=== PATIENT | female | born 1995 | race Caucasian/White ===

== ENCOUNTER 2019-06-13 13:32 | Inpatient (IN) ==
[2019-06-13] MEDS ORDERED: 0.9 % Sodium Chloride 1,000 ML IVC ONE ×2 (14:31→17:24)
[2019-06-13 15:13] LABS: Basophils % 0.6 %; Red Cell Distribution Width 11.9 % (11.5-14.5)
[2019-06-13 15:16] LABS: Hematocrit 35.7 % (35.3-44.9); Hemoglobin 13.2 g/dL (11.5-15.4); Immature Granulocytes % 0.6 % (0-4); Lymphocytes # 0.8 K/mcL (0.6-4.6); Lymphocytes % 43.6 %; Mean Corpuscular Volume 94.7 fL (83.0-100.0); Mean Platelet Volume 10.1 fL (9.4-12.4); Monocytes # 0.7 K/mcL (0.0-1.3); Monocytes % 37.4 %; Neutrophils # 0.3 K/mcL (1.6-8.9); Platelet Count 190 K/mcL (140-400); Red Blood Count 3.77 M/mcL (3.82-4.97); Segmented Neutrophils % 17.8 %; White Blood Count 1.8 K/mcL (4.3-11.1)
[2019-06-13 15:32] LABS: Reactive Lymphocytes Present (Not Present)
[2019-06-13 15:33] LABS: Platelet Estimate Normal (Normal)
[2019-06-13 15:35] LABS: Alanine Aminotransferase 68 Units/L (7-52); Albumin 4.3 g/dL (3.5-5.7); Albumin/Globulin Ratio 1.3 (1.1-2.2); Alkaline Phosphatase 78 Units/L (34-104); Aspartate Amino Transferase 59 Units/L (13-39); BUN/Creatinine Ratio 7 (6-26); Bilirubin,Total 1.2 mg/dL (0.3-1.0); Blood Urea Nitrogen 8 mg/dL (6-20); Calcium 8.9 mg/dL (8.6-10.3); Carbon Dioxide 22 mEq/L (23-29); Chloride 100 mEq/L (98-107); Globulin 3.3 g/dL (2.4-3.5); Glucose 105 mg/dL (70-105); Osmolality,Calculated 277 (280-300); Potassium 3.2 mEq/L (3.5-5.1); Sodium 134 mEq/L (136-145); Total Protein 7.6 g/dL (6.4-8.9); eGFR For African Americans > 60 (> 60); eGFR For Non-African Americans > 60 (> 60)
[2019-06-13 15:52] LABS: Bilirubin,Urine Small (Negative); Blood,Urine Negative (Negative); Clarity,Urine Cloudy (Clear); Color,Urine Dark Yellow (Yellow); Glucose,Urine (UA) Normal (Normal); Ketones,Urine 40 mg/dL (Negative); Leukocyte Esterase,Urine Moderate (Negative); Nitrite,Urine Negative (Negative); PH,Urine 6.5 pH Units (5.0-8.0); Protein,Urine 30 mg/dL (Neg-Trace); Specific Gravity,Urine 1.015 (1.010-1.025)
[2019-06-13 16:01] LABS: Bacteria,Urine Moderate per hpf (None-Few); Hyaline Casts,Urine None Seen per lpf (None-Few); RBC,Urine 0-3 per hpf (0-3); Squamous Epithelial Cell,Urine Many per lpf (None-Few); WBC,Urine 30-50 per hpf (0-3)
[2019-06-13] MEDS ORDERED: Cefepime HCl 2,000 MG in Water for inj. (sterile) 20 ML IVP ONE (16:55)
[2019-06-13] MEDS ORDERED: Acyclovir 700 MG in D5% in Water 100 ML IVPB ONE (16:56)
[2019-06-13] MEDS ORDERED: MetroNIDAZOLE 500 MG/100 ML 500 MG/100 ML BAG IVPB ONE (16:56)
[2019-06-13] MEDS ORDERED: Doxycycline 100 MG in 0.9 % Sodium Chloride Mini Bag 100 ML IVPB ONE (16:57)
[2019-06-13] MEDS ORDERED: Isovue-370 500 ML BOTTLE IVP ONE (17:24)
[2019-06-13 18:00] LABS: Candida DNA Not Detected (Not Detect); Gardnerella DNA DETECTED (Not Detect); Trichomonas DNA Not Detected (Not Detect)
[2019-06-13] MEDS ORDERED: Naloxone 0.4 MG/ML INJ IVP PRN (18:07)
[2019-06-13] MEDS: 0.9 % Sodium Chloride 1,000 ML IVC SCH (21:11)
[2019-06-14] MEDS: Cefepime HCl 2,000 MG in 0.9 % Sodium Chloride Mini Bag 100 ML IVPB SCH ×3 (02:28→17:37)
[2019-06-14 02:37] LABS: Adenovirus Not Detected (Not Detect); Bordetella Pertussis Not Detected (Not Detect); Chlamydophila pneumoniae Not Detected (Not Detect); Coronavirus 229E Not Detected (Not Detect); Coronavirus HKU1 Not Detected (Not Detect); Coronavirus NL63 Not Detected (Not Detect); Coronavirus OC43 Not Detected (Not Detect); Human Metapneumovirus Not Detected (Not Detect); Human Rhinovirus/Enterovirus Not Detected (Not Detect); Influenza A Subtype 2009 H1 Not Detected (Not Detect); Influenza B Not Detected (Not Detect); Mycoplasma pneumoniae Not Detected (Not Detect); Parainfluenza Virus 1 Not Detected (Not Detect); Parainfluenza Virus 2 Not Detected (Not Detect); Parainfluenza Virus 3 Not Detected (Not Detect); Parainfluenza Virus 4 Not Detected (Not Detect); Respiratory Syncytial Virus Not Detected (Not Detect)
[2019-06-14 03:01] LABS: BUN/Creatinine Ratio 8 (6-26); Blood Urea Nitrogen 7 mg/dL (6-20); Calcium 7.7 mg/dL (8.6-10.3); Carbon Dioxide 24 mEq/L (23-29); Chloride 110 mEq/L (98-107); Glucose 119 mg/dL (70-105); Osmolality,Calculated 287 (280-300); Potassium 3.4 mEq/L (3.5-5.1); Sodium 139 mEq/L (136-145); eGFR For African Americans > 60 (> 60); eGFR For Non-African Americans > 60 (> 60)
[2019-06-14] MEDS: Acyclovir 500 MG in D5% in Water 100 ML IVPB SCH ×3 (03:11→16:10)
[2019-06-14 04:11] LABS: Basophils % 0.8 %; Hematocrit 29.4 % (35.3-44.9); Hemoglobin 10.4 g/dL (11.5-15.4); Immature Granulocytes % 0.8 % (0-4); Lymphocytes # 0.8 K/mcL (0.6-4.6); Lymphocytes % 60.9 %; Mean Corpuscular HGB Conc 35.4 g/dL (31.6-35.5); Mean Corpuscular Hemoglobin 34.7 pg (28.0-33.3); Mean Platelet Volume 10.8 fL (9.4-12.4); Monocytes # 0.4 K/mcL (0.0-1.3); Monocytes % 30.8 %; Neutrophils # 0.1 K/mcL (1.6-8.9); Platelet Count 170 K/mcL (140-400); Red Cell Distribution Width 12.4 % (11.5-14.5); Segmented Neutrophils % 6.7 %; White Blood Count 1.3 K/mcL (4.3-11.1)
[2019-06-14 04:13] LABS: Chlamydia Trachomatis DNA Ur NOT DETECTED (Not Detect)
[2019-06-14] MEDS: 0.9 % Sodium Chloride 1,000 ML IVC SCH ×2 (04:17→22:35)
[2019-06-14 04:53] LABS: Platelet Estimate Decreased (Normal)
[2019-06-14] MEDS: *HR* Heparin 5,000 UNIT/ML VIAL SQ SCH ×2 (05:06→18:51)
[2019-06-14] MEDS: Doxycycline 100 MG in 0.9 % Sodium Chloride Mini Bag 100 ML IVPB SCH ×2 (05:06→18:51)
[2019-06-14 07:49] LABS: Thyroid Stimulating Hormone 45.406 mcIU/mL (0.340-5.600)
[2019-06-14] MEDS: Potassium Chloride Elixir 20 MEQ/15 ML UDC PO SCH ×2 (08:26→22:33)
[2019-06-14 10:45] LABS: Mean Platelet Volume 10.3 fL (9.4-12.4)
[2019-06-14 10:51] LABS: INR 1.3; Prothrombin Time 14.8 Seconds (9.4-12.1)
[2019-06-14 10:54] LABS: Activated Partial Thrombo Time 32.7 Seconds (26.0-36.0)
[2019-06-14 11:00] LABS: Hematocrit 31.7 % (35.3-44.9); Hemoglobin 11.5 g/dL (11.5-15.4); Mean Corpuscular HGB Conc 36.3 g/dL (31.6-35.5); Mean Corpuscular Hemoglobin 35.3 pg (28.0-33.3); Mean Corpuscular Volume 97.2 fL (83.0-100.0); Neutrophils # 0.1 K/mcL (1.6-8.9); Platelet Count 184 K/mcL (140-400); Red Blood Count 3.26 M/mcL (3.82-4.97); Red Cell Distribution Width 12.4 % (11.5-14.5); White Blood Count 1.4 K/mcL (4.3-11.1)
[2019-06-14 11:31] LABS: Monocytes # 0.3 K/mcL (0.0-1.3)
[2019-06-14 11:32] LABS: Platelet Estimate Normal (Normal); Reactive Lymphocytes Present (Not Present)
[2019-06-14] MEDS ORDERED: Isovue-370 500 ML BOTTLE IVP ONE (12:26)
[2019-06-14 14:25] LABS: Albumin 3.6 g/dL (3.5-5.7); Albumin/Globulin Ratio 1.2 (1.1-2.2); Bilirubin,Direct 0.3 mg/dL (0.0-0.2); Bilirubin,Indirect 0.6 mg/dL (0.0-1.0); Bilirubin,Total 0.9 mg/dL (0.3-1.0); Globulin 3.1 g/dL (2.4-3.5); Total Protein 6.7 g/dL (6.4-8.9)
[2019-06-14 14:42] LABS: Folate 16.6 ng/mL (3.0-16.0)
[2019-06-14] MEDS: metroNIDAZOLE 500 MG TABLET PO SCH (22:26)
[2019-06-15] MEDS: Acyclovir 500 MG in D5% in Water 100 ML IVPB SCH ×3 (01:24→17:52)
[2019-06-15 02:37] LABS: Basophils % 0.5 %; Mean Platelet Volume 10.5 fL (9.4-12.4)
[2019-06-15 02:39] LABS: Hematocrit 33.3 % (35.3-44.9); Hemoglobin 11.7 g/dL (11.5-15.4); Lymphocytes # 1.3 K/mcL (0.6-4.6); Lymphocytes % 66.3 %; Mean Corpuscular HGB Conc 35.1 g/dL (31.6-35.5); Mean Corpuscular Hemoglobin 35.2 pg (28.0-33.3); Mean Corpuscular Volume 100.3 fL (83.0-100.0); Monocytes # 0.5 K/mcL (0.0-1.3); Monocytes % 26.4 %; Neutrophils # 0.1 K/mcL (1.6-8.9); Platelet Count 193 K/mcL (140-400); Red Blood Count 3.32 M/mcL (3.82-4.97); Red Cell Distribution Width 12.4 % (11.5-14.5); Segmented Neutrophils % 5.8 %; White Blood Count 1.9 K/mcL (4.3-11.1)
[2019-06-15] MEDS: Cefepime HCl 2,000 MG in 0.9 % Sodium Chloride Mini Bag 100 ML IVPB SCH ×3 (02:50→20:10)
[2019-06-15 02:58] LABS: Alanine Aminotransferase 54 Units/L (7-52); Albumin 3.8 g/dL (3.5-5.7); Albumin/Globulin Ratio 1.2 (1.1-2.2); Alkaline Phosphatase 72 Units/L (34-104); Aspartate Amino Transferase 47 Units/L (13-39); BUN/Creatinine Ratio 8 (6-26); Bilirubin,Total 0.7 mg/dL (0.3-1.0); Blood Urea Nitrogen 7 mg/dL (6-20); Carbon Dioxide 24 mEq/L (23-29); Chloride 104 mEq/L (98-107); Globulin 3.1 g/dL (2.4-3.5); Glucose 139 mg/dL (70-105); Osmolality,Calculated 282 (280-300); Potassium 4.5 mEq/L (3.5-5.1); Sodium 136 mEq/L (136-145); Total Protein 6.9 g/dL (6.4-8.9); eGFR For African Americans > 60 (> 60); eGFR For Non-African Americans > 60 (> 60)
[2019-06-15 03:37] LABS: Platelet Estimate Normal (Normal); Reactive Lymphocytes Present (Not Present)
[2019-06-15] MEDS: Doxycycline 100 MG in 0.9 % Sodium Chloride Mini Bag 100 ML IVPB SCH ×2 (05:47→17:53)
[2019-06-15] MEDS: *HR* Heparin 5,000 UNIT/ML VIAL SQ SCH ×2 (05:48→18:07)
[2019-06-15] MEDS: metroNIDAZOLE 500 MG TABLET PO SCH ×2 (08:39→21:18)
[2019-06-15] MEDS: 0.9 % Sodium Chloride 1,000 ML IVC SCH ×3 (11:55→13:35)
[2019-06-15 13:18] LABS: HSV 1 DNA Not Detected (Not Detect); HSV 2 DNA Not Detected (Not Detect)
[2019-06-16] MEDS: Cefepime HCl 2,000 MG in 0.9 % Sodium Chloride Mini Bag 100 ML IVPB SCH ×3 (01:43→18:24)
[2019-06-16] MEDS: Acyclovir 500 MG in D5% in Water 100 ML IVPB SCH ×2 (01:46→09:00)
[2019-06-16 04:04] LABS: Basophils % 0.4 %; Hemoglobin 12.6 g/dL (11.5-15.4); Immature Granulocytes % 1.8 % (0-4); Lymphocytes # 1.5 K/mcL (0.6-4.6); Lymphocytes % 65.3 %; Mean Corpuscular Hemoglobin 35.1 pg (28.0-33.3); Mean Corpuscular Volume 100.3 fL (83.0-100.0); Mean Platelet Volume 10.5 fL (9.4-12.4); Monocytes # 0.6 K/mcL (0.0-1.3); Monocytes % 24.9 %; Neutrophils # 0.2 K/mcL (1.6-8.9); Platelet Count 218 K/mcL (140-400); Red Blood Count 3.59 M/mcL (3.82-4.97); Red Cell Distribution Width 12.1 % (11.5-14.5); Segmented Neutrophils % 7.6 %; White Blood Count 2.3 K/mcL (4.3-11.1)
[2019-06-16 04:21] LABS: Platelet Estimate Normal (Normal); Reactive Lymphocytes Present (Not Present)
[2019-06-16 04:23] LABS: BUN/Creatinine Ratio 10 (6-26); Blood Urea Nitrogen 10 mg/dL (6-20); Calcium 9.5 mg/dL (8.6-10.3); Carbon Dioxide 23 mEq/L (23-29); Chloride 101 mEq/L (98-107); Glucose 126 mg/dL (70-105); Osmolality,Calculated 275 (280-300); Potassium 3.7 mEq/L (3.5-5.1); Sodium 132 mEq/L (136-145); eGFR For African Americans > 60 (> 60); eGFR For Non-African Americans > 60 (> 60)
[2019-06-16] MEDS: Doxycycline 100 MG in 0.9 % Sodium Chloride Mini Bag 100 ML IVPB SCH (06:14)
[2019-06-16] MEDS: *HR* Heparin 5,000 UNIT/ML VIAL SQ SCH ×2 (06:14→18:25)
[2019-06-16] MEDS: metroNIDAZOLE 500 MG TABLET PO SCH ×2 (08:57→20:15)
[2019-06-16 14:01] LABS: Procalcitonin 0.46 ng/mL (0.00-0.15)
[2019-06-16] MEDS ORDERED: Lidocaine/EPI 1:100k 1% 20 ML VIAL INFILT ONE (15:33)
[2019-06-16] MEDS ORDERED: Benzocaine/Menthol 56 GM AEROSOL SPRAY TP PRN (16:15)
[2019-06-16 19:35] LABS: Hepatitis B Surface Antigen Nonreactive (Nonreactive)
[2019-06-16 20:05] LABS: Hepatitis C Virus Antibody Nonreactive (Nonreactive)
[2019-06-16 20:06] LABS: Hepatitis B Core IgM Nonreactive (Nonreactive)
[2019-06-16 20:07] LABS: Hepatitis A Antibody IgM Nonreactive (Nonreactive)
[2019-06-17] MEDS: Cefepime HCl 2,000 MG in 0.9 % Sodium Chloride Mini Bag 100 ML IVPB SCH ×2 (01:50→10:08)
[2019-06-17 05:20] LABS: Hematocrit 37.6 % (35.3-44.9); Hemoglobin 13.1 g/dL (11.5-15.4); Mean Corpuscular HGB Conc 34.8 g/dL (31.6-35.5); Mean Corpuscular Hemoglobin 34.9 pg (28.0-33.3); Mean Corpuscular Volume 100.3 fL (83.0-100.0); Mean Platelet Volume 10.2 fL (9.4-12.4); Platelet Count 244 K/mcL (140-400); Red Blood Count 3.75 M/mcL (3.82-4.97); White Blood Count 2.7 K/mcL (4.3-11.1)
[2019-06-17 05:35] LABS: BUN/Creatinine Ratio 13 (6-26); Blood Urea Nitrogen 14 mg/dL (6-20); Calcium 9.3 mg/dL (8.6-10.3); Carbon Dioxide 25 mEq/L (23-29); Chloride 97 mEq/L (98-107); Glucose 119 mg/dL (70-105); Osmolality,Calculated 278 (280-300); Potassium 3.7 mEq/L (3.5-5.1); Sodium 133 mEq/L (136-145); eGFR For African Americans > 60 (> 60); eGFR For Non-African Americans > 60 (> 60)
[2019-06-17] MEDS: *HR* Heparin 5,000 UNIT/ML VIAL SQ SCH (05:48)
[2019-06-17 06:48] LABS: Lymphocytes # 1.6 K/mcL (0.6-4.6); Monocytes # 0.4 K/mcL (0.0-1.3); Neutrophils # 0.7 K/mcL (1.6-8.9); Platelet Estimate Normal (Normal)
[2019-06-17 08:08] VITALS: BP 103/72
[2019-06-17 09:58] LABS: HIV-1 Viral Load Interp NOT DETECTED (Not Detected)
[2019-06-17] MEDS: metroNIDAZOLE 500 MG TABLET PO SCH (10:08)
[2019-06-17 10:23] LABS: HSV 1 Glycoprotein G IgG 0.19 IV (<=0.90); HSV 2 Glycoprotein G IgG 0.19 IV (<=0.90)
[2019-06-18 11:05] LABS: ANA IgG by ELISA DETECTED (None Detected)
[2019-06-18 19:06] LABS: ANA HEp-2 IgG IFA DETECTED (<1:80); Anti Nuclear Ab Pattern SPECKLED
== END 2019-06-17 18:33 | disposition home or self-care (01) | DRG 531 ==
LOC: EMEROOARM 13:32 → 3BNU 13:32 → SUATTDRO 19:42 → 3BNU 20:31
PROVIDERS: ADMIT Student in an Organized Health Care Education/Training Program; ATTEND Internal Medicine

== ENCOUNTER 2020-02-17 17:35 | Observation (INO) ==
[2020-02-17] MEDS ORDERED: 0.9 % Sodium Chloride 1,000 ML IVC ONE ×2 (17:53→18:42)
[2020-02-17] MEDS ORDERED: Isovue-370 500 ML BOTTLE IVP ONE (18:04)
[2020-02-17] MEDS ORDERED: Dexamethasone 4 MG/ML VIAL IVP ONE (18:04)
[2020-02-17] MEDS ORDERED: cefTRIAXone 2,000 MG in Water for inj. (sterile) 20 ML IVP ONE (18:06)
[2020-02-17 18:32] LABS: Basophils % 1.9 %; Red Cell Distribution Width 12.1 % (11.5-14.5)
[2020-02-17 18:33] LABS: Hematocrit 34.3 % (35.3-44.9); Hemoglobin 11.8 g/dL (11.5-15.4); Immature Granulocytes % 0.9 % (0-4); Lymphocytes # 0.3 K/mcL (0.6-4.6); Lymphocytes % 31.1 %; Mean Corpuscular HGB Conc 34.4 g/dL (31.6-35.5); Mean Corpuscular Hemoglobin 34.6 pg (28.0-33.3); Mean Corpuscular Volume 100.6 fL (83.0-100.0); Monocytes # 0.4 K/mcL (0.0-1.3); Monocytes % 38.7 %; Neutrophils # 0.3 K/mcL (1.6-8.9); Platelet Count 186 K/mcL (140-400); Red Blood Count 3.41 M/mcL (3.82-4.97); Segmented Neutrophils % 27.4 %
[2020-02-17 18:35] LABS: White Blood Count 1.1 K/mcL (4.3-11.1)
[2020-02-17 18:47] LABS: BUN/Creatinine Ratio 7 (6-26); Blood Urea Nitrogen 7 mg/dL (6-20); Carbon Dioxide 26 mEq/L (23-29); Chloride 102 mEq/L (98-107); Glucose 88 mg/dL (70-105); Osmolality,Calculated 285 (280-300); Potassium 3.4 mEq/L (3.5-5.1); Sodium 139 mEq/L (136-145); eGFR For African Americans > 60 (> 60); eGFR For Non-African Americans > 60 (> 60)
[2020-02-17 18:58] LABS: Platelet Estimate Normal (Normal)
[2020-02-17 19:00] LABS: Anisocytosis 1+ (Not Present)
[2020-02-17 19:14] LABS: Thyroid Stimulating Hormone 37.628 mcIU/mL (0.340-5.600)
[2020-02-17] MEDS ORDERED: Ampicillin/Sulbactam 3,000 MG in 0.9 % Sodium Chloride Mini Bag 100 ML IVPB ONE (20:12)
[2020-02-17] MEDS ORDERED: Naloxone 0.4 MG/ML INJ IVP PRN (21:04)
[2020-02-17] MEDS ORDERED: Ondansetron 4 MG/2 ML VIAL IVP PRN (21:04)
[2020-02-17] MEDS ORDERED: Ketorolac 30 MG/ML VIAL IVP PRN (21:04)
[2020-02-17] MEDS ORDERED: 0.9 % Sodium Chloride 1,000 ML IVC SCH (21:15)
[2020-02-18] MEDS ORDERED: Benzonatate 100 MG CAPSULE PO PRN (01:02)
[2020-02-18] MEDS: Ampicillin/Sulbactam 3,000 MG in 0.9 % Sodium Chloride Mini Bag 100 ML IVPB SCH ×4 (02:12→20:58)
[2020-02-18 07:52] LABS: Basophils % 1.9 %; Hemoglobin 10.2 g/dL (11.5-15.4); Lymphocytes # 0.3 K/mcL (0.6-4.6); Lymphocytes % 30.5 %; Mean Corpuscular Hemoglobin 34.8 pg (28.0-33.3); Mean Corpuscular Volume 102.4 fL (83.0-100.0); Mean Platelet Volume 10.1 fL (9.4-12.4); Monocytes # 0.3 K/mcL (0.0-1.3); Monocytes % 23.8 %; Neutrophils # 0.5 K/mcL (1.6-8.9); Platelet Count 156 K/mcL (140-400); Red Blood Count 2.93 M/mcL (3.82-4.97); Red Cell Distribution Width 12.3 % (11.5-14.5); Segmented Neutrophils % 42.8 %
[2020-02-18 08:08] LABS: White Blood Count 1.1 K/mcL (4.3-11.1)
[2020-02-18 08:10] LABS: Alanine Aminotransferase 12 Units/L (7-52); Albumin 3.1 g/dL (3.5-5.7); Alkaline Phosphatase 81 Units/L (34-104); Aspartate Amino Transferase 10 Units/L (13-39); BUN/Creatinine Ratio 11 (6-26); Bilirubin,Total 1.1 mg/dL (0.3-1.0); Blood Urea Nitrogen 10 mg/dL (6-20); Calcium 8.1 mg/dL (8.6-10.3); Carbon Dioxide 20 mEq/L (23-29); Chloride 109 mEq/L (98-107); Globulin 3.2 g/dL (2.4-3.5); Glucose 159 mg/dL (70-105); Osmolality,Calculated 292 (280-300); Potassium 3.1 mEq/L (3.5-5.1); Sodium 140 mEq/L (136-145); Total Protein 6.3 g/dL (6.4-8.9); eGFR For African Americans > 60 (> 60); eGFR For Non-African Americans > 60 (> 60)
[2020-02-18 08:55] LABS: Platelet Estimate Normal (Normal)
[2020-02-18] MEDS: 0.9 % Sodium Chloride 1,000 ML IVC SCH ×2 (09:58→20:07)
[2020-02-18] MEDS: GuaiFENesin/Codeine Oral Soln 5 ML UDC PO PRN ×2 (10:03→20:05)
[2020-02-18 17:07] LABS: % Iron Saturation 47 % (15-50); Iron 81 mcg/dL (50-170); Transferrin 124 mg/dL (203-362)
[2020-02-18 17:25] LABS: Ferritin 465 ng/mL (10-120)
[2020-02-19 02:01] LABS: Hemoglobin 9.9 g/dL (11.5-15.4); Mean Corpuscular HGB Conc 34.1 g/dL (31.6-35.5); Mean Corpuscular Hemoglobin 34.7 pg (28.0-33.3); Mean Corpuscular Volume 101.8 fL (83.0-100.0); Mean Platelet Volume 10.4 fL (9.4-12.4); Platelet Count 169 K/mcL (140-400); Red Blood Count 2.85 M/mcL (3.82-4.97); White Blood Count 1.7 K/mcL (4.3-11.1)
[2020-02-19 02:17] LABS: BUN/Creatinine Ratio 14 (6-26); Blood Urea Nitrogen 11 mg/dL (6-20); Calcium 7.5 mg/dL (8.6-10.3); Carbon Dioxide 22 mEq/L (23-29); Chloride 111 mEq/L (98-107); Glucose 128 mg/dL (70-105); Magnesium 1.6 mg/dL (1.6-2.6); Osmolality,Calculated 289 (280-300); Potassium 3.4 mEq/L (3.5-5.1); Sodium 139 mEq/L (136-145); eGFR For African Americans > 60 (> 60); eGFR For Non-African Americans > 60 (> 60)
[2020-02-19 02:51] LABS: Lymphocytes # 0.6 K/mcL (0.6-4.6); Monocytes # 0.3 K/mcL (0.0-1.3); Neutrophils # 0.7 K/mcL (1.6-8.9); Platelet Estimate Normal (Normal)
[2020-02-19 02:52] LABS: Reactive Lymphocytes Present (Not Present)
[2020-02-19] MEDS: Ampicillin/Sulbactam 3,000 MG in 0.9 % Sodium Chloride Mini Bag 100 ML IVPB SCH ×2 (03:10→07:37)
[2020-02-19] MEDS: GuaiFENesin/Codeine Oral Soln 5 ML UDC PO PRN (03:15)
[2020-02-19] MEDS: Potassium Chloride Elixir 20 MEQ/15 ML UDC PO ONE ×2 (07:41→10:16)
[2020-02-19 08:18] VITALS: BP 110/80
== END 2020-02-19 13:07 | disposition home or self-care (01) ==
LOC: EMEROOARM 17:35 → 2ANU 17:35 → SUATTDRO 21:19 → 2ANU 21:38
PROVIDERS: ADMIT Student in an Organized Health Care Education/Training Program; ATTEND Internal Medicine

== ENCOUNTER 2020-12-22 10:48 | Observation (INO) ==
[2020-12-22] MEDS ORDERED: 0.9 % Sodium Chloride 1,000 ML IVC ONE (11:36)
[2020-12-22 12:05] LABS: Hemoglobin 10.5 g/dL (11.5-15.4); Lymphocytes # 0.7 K/mcL (0.6-4.6); Mean Corpuscular Hemoglobin 33.8 pg (28.0-33.3); Mean Corpuscular Volume 96.5 fL (83.0-100.0); Mean Platelet Volume 9.7 fL (9.4-12.4); Monocytes # 0.5 K/mcL (0.0-1.3); Nucleated Red Blood Cells 1.3 /100 WBC (0); Platelet Count 248 K/mcL (140-400); Red Blood Count 3.11 M/mcL (3.82-4.97); Red Cell Distribution Width 13.9 % (11.5-14.5); White Blood Count 1.6 K/mcL (4.3-11.1)
[2020-12-22 12:28] LABS: BUN/Creatinine Ratio 13 (6-26); Blood Urea Nitrogen 7 mg/dL (6-20); Calcium 9.5 mg/dL (8.6-10.3); Carbon Dioxide 23 mEq/L (23-29); Chloride 96 mEq/L (98-107); Glucose 99 mg/dL (70-105); Osmolality,Calculated 260 (280-300); Potassium 3.9 mEq/L (3.5-5.1); Sodium 126 mEq/L (136-145); eGFR For African Americans > 60 (> 60); eGFR For Non-African Americans > 60 (> 60)
[2020-12-22 12:42] LABS: Bacteria,Urine Few per hpf (None-Few); Bilirubin,Urine Negative (Negative); Blood,Urine Negative (Negative); Clarity,Urine Turbid (Clear); Color,Urine Yellow (Yellow); Glucose,Urine (UA) Normal (Normal); Ketones,Urine Negative (Negative); Leukocyte Esterase,Urine Trace (Negative); Mucus,Urine Few per lpf (None-Few); Nitrite,Urine Negative (Negative); Protein,Urine Trace mg/dL (Neg-Trace); RBC,Urine 0-3 per hpf (0-3); Specific Gravity,Urine 1.015 (1.010-1.025); Squamous Epithelial Cell,Urine Few per hpf (None-Few)
[2020-12-22 12:53] LABS: Neutrophils # 0.5 K/mcL (1.6-8.9); Platelet Estimate Normal (Normal)
[2020-12-22 12:54] LABS: Anisocytosis 1+ (Not Present)
[2020-12-22 13:50] LABS: Thyroid Stimulating Hormone 22.006 mcIU/mL (0.340-5.600)
[2020-12-22] MEDS ORDERED: 0.9 % Sodium Chloride 1,000 ML ONE (16:58)
[2020-12-22] MEDS: Loratadine 10 MG TABLET PO SCH (20:25)
[2020-12-22] MEDS ORDERED: Naloxone 0.4 MG/ML INJ IVP PRN (20:38)
[2020-12-22] MEDS ORDERED: Ondansetron 4 MG/2 ML VIAL IVP PRN (20:38)
[2020-12-22 21:22] LABS: BUN/Creatinine Ratio 9 (6-26); Blood Urea Nitrogen 5 mg/dL (6-20); Calcium 8.7 mg/dL (8.6-10.3); Carbon Dioxide 22 mEq/L (23-29); Chloride 101 mEq/L (98-107); Glucose 133 mg/dL (70-105); Osmolality,Calculated 275 (280-300); Potassium 3.5 mEq/L (3.5-5.1); Sodium 133 mEq/L (136-145); eGFR For African Americans > 60 (> 60); eGFR For Non-African Americans > 60 (> 60)
[2020-12-22 21:43] LABS: Triiodothyronine (T3) Free 2.51 pg/mL (2.50-3.90)
[2020-12-22] MEDS ORDERED: D5% in Water 1,000 ML IVC SCH (22:15)
[2020-12-23 02:34] LABS: BUN/Creatinine Ratio 10 (6-26); Blood Urea Nitrogen 5 mg/dL (6-20); Calcium 8.8 mg/dL (8.6-10.3); Carbon Dioxide 24 mEq/L (23-29); Chloride 100 mEq/L (98-107); Glucose 101 mg/dL (70-105); Osmolality,Calculated 269 (280-300); Potassium 3.4 mEq/L (3.5-5.1); Sodium 131 mEq/L (136-145); eGFR For African Americans > 60 (> 60); eGFR For Non-African Americans > 60 (> 60)
[2020-12-23 03:13] LABS: BUN/Creatinine Ratio 10 (6-26); Blood Urea Nitrogen 5 mg/dL (6-20); Calcium 8.5 mg/dL (8.6-10.3); Carbon Dioxide 23 mEq/L (23-29); Chloride 101 mEq/L (98-107); Glucose 158 mg/dL (70-105); Osmolality,Calculated 275 (280-300); Potassium 3.3 mEq/L (3.5-5.1); Sodium 132 mEq/L (136-145); eGFR For African Americans > 60 (> 60); eGFR For Non-African Americans > 60 (> 60)
[2020-12-23 04:42] LABS: White Blood Count 1.2 K/mcL (4.3-11.1)
[2020-12-23 04:43] LABS: Hematocrit 26.3 % (35.3-44.9); Hemoglobin 8.9 g/dL (11.5-15.4); Mean Corpuscular HGB Conc 33.8 g/dL (31.6-35.5); Mean Corpuscular Hemoglobin 33.2 pg (28.0-33.3); Mean Corpuscular Volume 98.1 fL (83.0-100.0); Platelet Count 217 K/mcL (140-400); Red Blood Count 2.68 M/mcL (3.82-4.97); Red Cell Distribution Width 13.8 % (11.5-14.5)
[2020-12-23] MEDS ORDERED: D5% in Water 1,000 ML IVC SCH ×2 (05:00→06:57)
[2020-12-23 05:01] LABS: BUN/Creatinine Ratio 10 (6-26); Blood Urea Nitrogen 5 mg/dL (6-20); Calcium 8.6 mg/dL (8.6-10.3); Carbon Dioxide 22 mEq/L (23-29); Chloride 103 mEq/L (98-107); Glucose 109 mg/dL (70-105); Osmolality,Calculated 274 (280-300); Potassium 3.6 mEq/L (3.5-5.1); Sodium 133 mEq/L (136-145); eGFR For African Americans > 60 (> 60); eGFR For Non-African Americans > 60 (> 60)
[2020-12-23] MEDS ORDERED: cefTRIAXone 500 MG VIAL IM ONE (09:21)
[2020-12-23] MEDS ORDERED: Azithromycin 250 MG TABLET PO ONE (09:41)
[2020-12-23] MEDS: Loratadine 10 MG TABLET PO SCH (10:40)
[2020-12-23 15:32] VITALS: BP 93/58; PULSE 112; TEMP 98.3; O2SAT 99
[2020-12-23 16:35] LABS: BUN/Creatinine Ratio 9 (6-26); Blood Urea Nitrogen 5 mg/dL (6-20); Calcium 9.1 mg/dL (8.6-10.3); Carbon Dioxide 24 mEq/L (23-29); Chloride 100 mEq/L (98-107); Glucose 72 mg/dL (70-105); Osmolality,Calculated 268 (280-300); Potassium 4.4 mEq/L (3.5-5.1); Sodium 131 mEq/L (136-145); eGFR For African Americans > 60 (> 60); eGFR For Non-African Americans > 60 (> 60)
[2020-12-24] MEDS ORDERED: Prenatal Vit/FA 1 EACH TABLET PO SCH (09:00)
== END 2020-12-23 18:17 | disposition home or self-care (01) ==
LOC: 1NENUOBS 10:48 → EMEROOARM 10:48 → 1NENUOBS 16:12 → 1NENULAB 16:39 → 1NENUOBS 18:54
PROVIDERS: ADMIT Obstetrics & Gynecology; ATTEND Obstetrics & Gynecology

== ENCOUNTER 2021-03-01 18:50 | Observation (INO) ==
[2021-03-01 19:59] LABS: Bacteria,Urine Few per hpf (None-Few); Bilirubin,Urine Negative (Negative); Blood,Urine Negative (Negative); Clarity,Urine Turbid (Clear); Color,Urine Light-Yellow (Yellow); Glucose,Urine (UA) Normal (Normal); Ketones,Urine Negative (Negative); Leukocyte Esterase,Urine Trace (Negative); Mucus,Urine Few per lpf (None-Few); Nitrite,Urine Negative (Negative); PH,Urine 6.5 pH Units (5.0-8.0); Protein,Urine 30 mg/dL (Neg-Trace); RBC,Urine 0-3 per hpf (0-3); Specific Gravity,Urine 1.008 (1.010-1.025); Squamous Epithelial Cell,Urine Moderate per hpf (None-Few); Transitional Epi Cells,Urine Few per hpf (None-Few); Urobilinogen,Urine Normal (Normal)
[2021-03-01] MEDS ORDERED: EPHEDrine 50 MG/ML VIAL IVP PRN (20:50)
[2021-03-01] MEDS ORDERED: Epidural Premix (fent/bupiv) 110 ML EP SCH (21:00)
== END 2021-03-01 21:00 | disposition home or self-care (01) ==
LOC: 1NENULAB
PROVIDERS: ADMIT Student in an Organized Health Care Education/Training Program; ATTEND Student in an Organized Health Care Education/Training Program

== ENCOUNTER 2021-03-03 03:49 | Inpatient (IN) ==
[2021-03-03] MEDS ORDERED: Famotidine 20 MG/2 ML VIAL IVP PRN (03:51)
[2021-03-03] MEDS ORDERED: Metoclopramide 10 MG/2 ML VIAL IVP PRN ×2 (03:51→23:41)
[2021-03-03] MEDS ORDERED: Naloxone 0.4 MG/ML INJ IVP PRN (03:51)
[2021-03-03] MEDS ORDERED: Ondansetron 4 MG/2 ML VIAL IVP PRN ×3 (03:51→23:41)
[2021-03-03] MEDS ORDERED: *HR* Nalbuphine 10 MG/ML AMPUL IV PRN (03:51)
[2021-03-03] MEDS ORDERED: Lidocaine 1% 20 ML MDV INFILT PRN (03:51)
[2021-03-03 05:14] LABS: Amphetamine Screen,Urine Negative ng/mL (Cutoff=1000); Barbiturate Screen,Urine Negative ng/mL (Cutoff=200); Benzodiazepines Screen,Urine Negative ng/mL (Cutoff=200); Cannabinoid Screen,Urine Negative ng/mL (Cutoff = 50); Cocaine Screen,Urine Negative ng/mL (Cutoff= 300); Opiate Screen,Urine Negative ng/mL (Cutoff=300); Phencyclidine Screen,Urine Negative ng/mL (Cutoff=25)
[2021-03-03] MEDS ORDERED: miSOPROStoL 25 MCG TABLET PO PRN (05:21)
[2021-03-03 05:26] LABS: Hemoglobin 12.8 g/dL (11.5-15.4)
[2021-03-03 05:27] LABS: Hematocrit 36.3 % (35.3-44.9); Mean Corpuscular HGB Conc 35.3 g/dL (31.6-35.5); Mean Corpuscular Hemoglobin 35.3 pg (28.0-33.3); Mean Platelet Volume 10.4 fL (9.4-12.4); Platelet Count 211 K/mcL (140-400); Red Blood Count 3.63 M/mcL (3.82-4.97); Red Cell Distribution Width 15.9 % (11.5-14.5); White Blood Count 1.8 K/mcL (4.3-11.1)
[2021-03-03] MEDS ORDERED: Oxytocin 20 units/ LR 1000 mL 20 UNIT/1,000 ML BAG IVC ONE (05:39)
[2021-03-03] MEDS ORDERED: Oxytocin 20 units/ LR 1000 mL 20 UNIT/1,000 ML BAG IVC SCH ×2 (05:45→23:41)
[2021-03-03 06:11] LABS: Influenza A PCR Negative (Negative); Influenza B PCR Negative (Negative); Resp. Syncytial Virus PCR Negative (Negative)
[2021-03-03 06:15] LABS: SARS-CoV-2 by PCR (In House) Negative (Negative)
[2021-03-03 08:01] LABS: Lymphocytes # 0.8 K/mcL (0.6-4.6); Monocytes # 0.3 K/mcL (0.0-1.3); Neutrophils # 0.8 K/mcL (1.6-8.9)
[2021-03-03 08:02] LABS: Platelet Estimate Normal (Normal)
[2021-03-03 08:39] LABS: Chlamydia Trachomatis DNA Ur NOT DETECTED (Not Detect)
[2021-03-03] MEDS ORDERED: Epidural Premix (fent/bupiv) 110 ML EP ONE (11:28)
[2021-03-03] MEDS ORDERED: Ropivacaine/PF 0.2% 20 ML VIAL ONE (11:36)
[2021-03-03] MEDS ORDERED: *HR* FentaNYL (PF) 100 MCG/2 ML VIAL ONE ×2 (11:36→20:53)
[2021-03-03] MEDS: Ringers Solution, Lactated 1,000 ML IVC SCH ×2 (11:41→16:45)
[2021-03-03] MEDS ORDERED: Methylergonovine 0.2 MG/ML AMPUL IM ONE (11:59)
[2021-03-03] MEDS ORDERED: miSOPROStoL 100 MCG TABLET RC ONE (11:59)
[2021-03-03] MEDS ORDERED: Ropivacaine/PF 0.2% 20 ML VIAL EP ONE (12:22)
[2021-03-03] MEDS ORDERED: EPHEDrine 50 MG/ML VIAL IVP PRN (12:22)
[2021-03-03] MEDS ORDERED: *HR* FentaNYL (PF) 100 MCG/2 ML VIAL EP ONE (12:22)
[2021-03-03] MEDS ORDERED: Epidural Premix (fent/bupiv) 110 ML EP SCH (12:30)
[2021-03-03] MEDS: Acetaminophen 325 MG TABLET PO PRN (18:31)
[2021-03-03] MEDS ORDERED: Piperacillin/Tazobactam 3.375 GM in 0.9 % Sodium Chloride Mini Bag 100 ML IVPB SCH (19:00)
[2021-03-03] MEDS ORDERED: CeFAZolin 2,000 MG/120 ML BAG IVPB ONE (19:58)
[2021-03-03] MEDS ORDERED: Ondansetron 4 MG/2 ML VIAL ONE (20:07)
[2021-03-03] MEDS ORDERED: Ketorolac 30 MG/ML VIAL ONE (20:07)
[2021-03-03] MEDS ORDERED: Acetaminophen IV 1,000 MG/100 ML BAG IVPB ONE (20:08)
[2021-03-03] MEDS ORDERED: *HR* Propofol 200 MG/20 ML VIAL IVP ONE (20:22)
[2021-03-03] MEDS ORDERED: *HR* Succinylcholine 200 MG/10 ML VIAL IVP ONE (20:22)
[2021-03-03] MEDS ORDERED: *HR* Morphine Sulfate/PF 10 MG/10 ML AMPUL ONE (20:33)
[2021-03-03] MEDS ORDERED: *HR* OxyCODONE Immed Rel 5 MG TABLET PO PRN (21:00)
[2021-03-03] MEDS ORDERED: *HR* HYDROmorphone PF 0.5 MG/0.5 ML SYRINGE IVP PRN (21:00)
[2021-03-03] MEDS ORDERED: *HR* Labetalol 20 MG/4 ML SYRINGE IVP ONE (22:08)
[2021-03-03] MEDS ORDERED: Rho Immune Globulin 1,500 UNIT SYRINGE IM ONE (23:41)
[2021-03-04] MEDS: Ibuprofen 600 MG TABLET PO SCH ×4 (00:26→20:07)
[2021-03-04] MEDS: Acetaminophen 325 MG TABLET PO SCH ×3 (02:35→20:08)
[2021-03-04] MEDS: *HR* OxyCODONE Immed Rel 5 MG TABLET PO PRN ×4 (02:35→22:26)
[2021-03-04] MEDS: Piperacillin/Tazobactam 3.375 GM in 0.9 % Sodium Chloride Mini Bag 100 ML IVPB SCH ×3 (02:41→20:07)
[2021-03-04 04:48] LABS: Mean Platelet Volume 9.9 fL (9.4-12.4); Red Cell Distribution Width 15.7 % (11.5-14.5)
[2021-03-04 04:49] LABS: Hematocrit 31.4 % (35.3-44.9); Hemoglobin 10.7 g/dL (11.5-15.4); Lymphocytes # 0.3 K/mcL (0.6-4.6); Mean Corpuscular HGB Conc 34.1 g/dL (31.6-35.5); Mean Corpuscular Volume 102.6 fL (83.0-100.0); Nucleated Red Blood Cells 1.9 /100 WBC (0); Platelet Count 131 K/mcL (140-400); Red Blood Count 3.06 M/mcL (3.82-4.97); White Blood Count 1.6 K/mcL (4.3-11.1)
[2021-03-04 06:00] LABS: Anisocytosis 1+ (Not Present); Monocytes # 0.2 K/mcL (0.0-1.3)
[2021-03-04 06:01] LABS: Platelet Estimate Slight Decrease (Normal); Reactive Lymphocytes Present (Not Present)
[2021-03-04] MEDS ORDERED: NON-FORMULARY MEDICATION 1 EACH EACH (Pnv No.95/Ferrous Fum/Folic Ac [Prenatal Caplet] 1 E PO SCH (09:00)
[2021-03-04] MEDS: Prenatal Vit/FA 1 EACH TABLET PO SCH (09:01)
[2021-03-04] MEDS ORDERED: Methylergonovine 0.2 MG/ML AMPUL IM ONE (11:59)
[2021-03-04] MEDS ORDERED: Ringers Solution, Lactated 1,000 ML ONE (12:31)
[2021-03-04] MEDS: Ringers Solution, Lactated 1,000 ML IVC SCH (12:44)
[2021-03-04] MEDS: Simethicone 80 MG TAB.CHEW PO PRN (20:08)
[2021-03-05] MEDS: Acetaminophen 325 MG TABLET PO SCH ×3 (02:53→23:04)
[2021-03-05] MEDS: Ibuprofen 600 MG TABLET PO SCH ×4 (02:53→23:03)
[2021-03-05] MEDS: Piperacillin/Tazobactam 3.375 GM in 0.9 % Sodium Chloride Mini Bag 100 ML IVPB SCH ×3 (02:54→18:11)
[2021-03-05] MEDS: Prenatal Vit/FA 1 EACH TABLET PO SCH (07:32)
[2021-03-05] MEDS: Acetaminophen 325 MG TABLET PO PRN (09:56)
[2021-03-05] MEDS: Simethicone 80 MG TAB.CHEW PO PRN (10:26)
[2021-03-05] MEDS ORDERED: Ringers Solution, Lactated 500 ML ONE (13:45)
[2021-03-05] MEDS: *HR* OxyCODONE Immed Rel 5 MG TABLET PO PRN ×2 (15:33→23:03)
[2021-03-06] MEDS: Piperacillin/Tazobactam 3.375 GM in 0.9 % Sodium Chloride Mini Bag 100 ML IVPB SCH (04:06)
[2021-03-06] MEDS: Acetaminophen 325 MG TABLET PO SCH (06:39)
[2021-03-06] MEDS: Ibuprofen 600 MG TABLET PO SCH (06:39)
[2021-03-06 08:12] VITALS: BP 108/70; PULSE 91; TEMP 98.1; O2SAT 97
[2021-03-06] MEDS: Prenatal Vit/FA 1 EACH TABLET PO SCH (08:50)
== END 2021-03-06 12:00 | disposition home or self-care (01) | DRG 540 ==
LOC: 1NENULAB 03:49 → 1NENUOBS 23:38
PROVIDERS: ADMIT Student in an Organized Health Care Education/Training Program; ATTEND Student in an Organized Health Care Education/Training Program